=== PATIENT | male | born 1950 | race Caucasian/White ===

== ENCOUNTER 2017-06-17 08:42 | Outpatient (CLI) | payer MEDICARE, OTHER ==
[2017-06-17 13:29] LABS: BASOPHILS % (AUTO) 0.7 %; EOSINOPHILS # (AUTO) 0.1 10^3/uL (0.0-0.7); EOSINOPHILS % (AUTO) 2.5 %; HCT - HEMATOCRIT 42.5 % (42.0-52.0); HGB - HEMOGLOBIN 14.1 g/dL (14.0-18.0); LYMPHOCYTES % (AUTO) 21.1 %; MEAN CORPUSCULAR HEMOGLOBIN 30.5 pg (27.0-31.0); MEAN CORPUSCULAR HGB CONC 33.3 g/dL (32.0-36.0); MEAN CORPUSCULAR VOLUME 91.7 fL (80.0-94.0); MEAN PLATELET VOLUME 8.3 fL (7.4-11.4); MONOCYTES # (AUTO) 0.4 10^3/uL (0.0-1.0); MONOCYTES % (AUTO) 8.2 %; NEUTROPHILS # (AUTO) 3.3 10^3/uL (1.5-6.6); NEUTROPHILS % (AUTO) 67.5 %; RED BLOOD COUNT 4.63 10^6/uL (4.70-6.10); RED CELL DISTRIBUTION WIDTH 13.1 % (12.0-15.0); UNCORRECTED WHITE BLOOD COUNT 4.9 x10^3/uL; WHITE BLOOD COUNT 4.9 x10^3/uL (4.8-10.8)
[2017-06-17 13:37] LABS: ALBUMIN/GLOBULIN RATIO 1.4 (1.0-2.2); BILIRUBIN,TOTAL 0.7 mg/dL (0.2-1.0); CALCIUM 8.9 mg/dL (8.5-10.3); CREATININE 1.1 mg/dL (0.6-1.2); POTASSIUM 4.4 mmol/L (3.5-5.0); TOTAL PROTEIN 7.2 g/dL (6.7-8.2)
== END 2017-06-17 08:43 | disposition home or self-care (01) ==
LOC: LAB.R 08:42
PROVIDERS: ATTEND Nurse Practitioner Primary Care
DX: R73.01 Impaired fasting glucose (principal)
CPT/HCPCS: 80053; 85025

== ENCOUNTER 2021-04-04 05:11 | Outpatient (CLI) | payer MEDICARE, OTHER | END 2021-04-04 05:12 | disposition critical access hospital (66) | LOC: EMS 05:11 | DX: R55 Syncope and collapse (principal) | CPT/HCPCS: A0425; A0429 ==

== ENCOUNTER 2021-04-04 05:21 | Emergency (ER) | payer MEDICARE, OTHER ==
[2021-04-04 05:32] VITALS: BP 128/79
[2021-04-04 06:06] LABS: BASOPHILS % (AUTO) 0.3 %; EOSINOPHILS # (AUTO) 0.1 10^3/uL (0.0-0.7); EOSINOPHILS % (AUTO) 0.9 %; HCT - HEMATOCRIT 41.5 % (42.0-52.0); LYMPHOCYTES # (AUTO) 0.6 10^3/uL (1.5-3.5); LYMPHOCYTES % (AUTO) 5.7 %; MEAN CORPUSCULAR HGB CONC 33.7 g/dL (32.0-36.0); MEAN PLATELET VOLUME 9.4 fL (7.4-11.4); MONOCYTES # (AUTO) 0.5 10^3/uL (0.0-1.0); MONOCYTES % (AUTO) 5.5 %; NEUTROPHILS # (AUTO) 8.4 10^3/uL (1.5-6.6); NEUTROPHILS % (AUTO) 87.3 %; PLT - PLATELET COUNT 189 10^3/uL (130-450); RED BLOOD COUNT 4.51 10^6/uL (4.70-6.10); RED CELL DISTRIBUTION WIDTH 12.5 % (12.0-15.0); WHITE BLOOD COUNT 9.6 x10^3/uL (4.8-10.8)
[2021-04-04] MEDS ORDERED: BUFFERED LIDOCAINE 10 ML SYRINGE IU ONE (06:11)
--- NOTE | 2021-04-04 06:23 | ED Physician Documentation ---
History of Present Illness - Stated complaint Stated Complaint: SYNCOPE - Chief complaint Chief Complaint: Neuro - History obtained from History obtained from: Patient, Family - Additonal information Additional information: Patient comes emergency department chief complaint of syncopal episode and head injury that occurred at about 4:00 this morning. Patient states he had been in bed asleep and got up to go to the bathroom. When he got to the bathroom he realized he was feeling lightheaded and sat down on the toilet to try to let it pass. However, the patient ended up having a syncopal episode, falling off the toilet, and striking his head he thinks on the shower cubicle that is next to the toilet. Patient sustained a laceration to the top of his scalp and according to , who heard the patient fall, was unconscious for "a minute or 2" following the episode. states that when she could not wake the patient up, she called EMS. By the time they got there, the patient was awake. Patient states he just feels tired now but denies any other complaints. He did not have any shortness of breath, chest pain, or nausea prior to the incident. He states he felt a little nauseated when he woke up and vomited once. No current nausea, however. Patient states he is otherwise healthy and has not had any new medications or dose changes of existing medications. He states he has had multiple syncopal episodes throughout his life precipitated by various circumstances. He states he has been worked up for his syncope before and work- up has been negative. Patient denies any focal neurologic deficits after hitting his head. No visual changes. No pain, including in spine. Patient did not try to ambulate after the incident. No other complaints at this time. Review of Systems Ten Systems: 10 systems reviewed and negative Constitutional: reports: Reviewed and negative Eyes: reports: Reviewed and negative Ears: reports: Reviewed and negative Nose: reports: Reviewed and negative Throat: reports: Reviewed and negative Cardiac: reports: Reviewed and negative Respiratory: reports: Reviewed and negative GI: reports: Reviewed and negative : reports: Reviewed and negative Skin: reports: Reviewed and negative Musculoskeletal: reports: Reviewed and negative Neurologic: reports: Syncope, Head injury, LOC Psychiatric: reports: Reviewed and negative Endocrine: reports: Reviewed and negative Immunocompromised: reports: Reviewed and negative PD PAST MEDICAL HISTORY - Past Medical History Past Medical History: No Cardiovascular: None Respiratory: None Endocrine/Autoimmune: None GI: None : None HEENT: None Psych: None Musculoskeletal: None Derm: None - Past Surgical History Past Surgical History: Yes - Present Medications Home Medications: Ambulatory Orders Medication Instructions Recorded Confirmed No Known Home Medications 04/04/21 04/04/21 - Allergies Allergies/Adverse Reactions: Allergies Allergy/AdvReac Type Severity Reaction Status Date / Time No Known Drug Allergies Allergy Verified 04/04/21 05:32 - Social History Does the pt smoke?: No Smoking Status: Never smoker Does the pt drink ETOH?: Yes Does the pt have substance abuse?: No - Immunizations Immunizations are current?: No PD ED PE NORMAL - Vitals Vital signs reviewed: Yes - General General: Alert and oriented X 3, No acute distress, Well developed/nourished - HEENT HEENT: PERRL, EOMI, Moist mucous membranes, Other (4 cm laceration to apex of scalp. Bleeding controlled. Mild edema with abrasion over bridge of nose. No deformity or tenderness. 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 No: T wave inversion Compare to prior EKG: Old EKG unavailable Computer interpretation: Agree with computer - Labs Labs: Laboratory Tests 04/04/21 04/04/21 04/04/21 05:57 05:57 05:57 WBC 9.6 RBC 4.51 L Hgb 14.0 Hct 41.5 L MCV 92.0 MCH 31.0 MCHC 33.7 RDW 12.5 Plt Count 189 MPV 9.4 Neut # (Auto) 8.4 H Lymph # (Auto) 0.6 L Cecil # (Auto) 0.5 Eos # (Auto) 0.1 Baso # (Auto) 0.0 Absolute Nucleated RBC 0.00 Nucleated RBC % 0.0 Sodium 138 Potassium 3.9 Chloride 101 Carbon Dioxide 27 Anion Gap 10.0 BUN 26 H Creatinine 1.1 Estimated GFR (MDRD) 66 L Glucose 155 H Calcium 8.6 Total Bilirubin 0.7 AST 19 ALT 15 Alkaline Phosphatase 65 Troponin I High Sens 3.2 Total Protein 6.7 Albumin 4.0 Globulin 2.7 Albumin/Globulin Ratio 1.5 Lipase 27 - Rads (name of study) CT head Radiology: Final report received, EMP read indepedently, See rad report (nad) Procedures - Laceration (location) scalp Length in cm: 4 Wound type: Linear, Into subcut fat, Clean. No: Exposure of bone Neurovascular status: Sensory intact, Vascular intact Anesthesia: Lidocaine 1% Wound preparation: Hibiclens, Irrigated copiously NS, Wound explored, To the base. No: FB identified Skin layer closure: Delilah, Sutures - enter # (7 delilah), Other Other: Patient tolerated well, No complications, Neurovascular intact, Dressing applied PD MEDICAL DECISION MAKING - ED course Complexity details: reviewed results, re-evaluated patient, considered differential, d/w patient, d/w family ED course: The patient was worked up with labs, EKG, and CT scan of the head, all of which were unremarkable. His scalp wound was repaired with delilah, as above. I felt the patient was stable for discharge home. He is advised regarding wound care and resting getting plenty of fluids today. We have discussed follow-up and the usual indications for return. Departure - Departure Disposition: 01 Home, Self Care Clinical Impression: Episode of syncope Qualifiers: Syncope type: vasovagal syncope Qualified Code(s): R55 - Syncope and collapse Closed head injury Qualifiers: Encounter type: initial encounter Qualified Code(s): S09.90XA - Unspecified injury of head, initial encounter Scalp laceration Qualifiers: Encounter type: initial encounter Qualified Code(s): S01.01XA - Laceration without foreign body of scalp, initial encounter Condition: Stable Instructions: ED Head Injury Closed, ED Laceration Scalp Stitch Or Stap, ED Syncope Vasovagal Comments: Please get rest today and drink plenty of fluids. Your labs, EKG, and head CT all look good. You will need to have the delilah in place for 10 days, at which time you should have your wound rechecked and delilah removed. You may have the delilah removed at urgent care, walking, or your primary care physician's office. If you are unable to be seen at any of these venues, you may return to the emergency department. Please have your wound check sooner if you develop redness or swelling spreading away from the wound, or if the wound splits open and is draining. You may let water and soap run over the wound but please do n ot rub, scrub, or immerse the wound until delilah are out. This is in order to prevent infection.
[2021-04-04 06:28] LABS: ALBUMIN/GLOBULIN RATIO 1.5 (1.0-2.2); BILIRUBIN,TOTAL 0.7 mg/dL (0.2-1.0); CALCIUM 8.6 mg/dL (8.5-10.3); CREATININE 1.1 mg/dL (0.6-1.2); POTASSIUM 3.9 mmol/L (3.5-5.0); TOTAL PROTEIN 6.7 g/dL (6.7-8.2)
--- NOTE | 2021-04-04 07:32 | CT Report ---
PROCEDURE: HEAD WO INDICATIONS: syncopal episode with head injury TECHNIQUE: Noncontrast 4.5 mm thick angled axial sections acquired from the foramen magnum to the vertex. For r adiation dose reduction, the following was used: automated exposure control, adjustment of mA and/or kV according to patient size. COMPARISON: None. FINDINGS: Image quality: Excellent. CSF spaces: Basal cisterns are patent. No extra-axial fluid collections. Ventricles are normal in size and shape. Brain: No midline shift. No intracranial masses or hemorrhage. Stringer-white matter interface is norm al. Skull and face: Calvarium and visualized facial bones are intact, without suspicious lesions. Sinuses: Visualized sinuses and mastoids are clear. IMPRESSION: No acute intracranial abnormality. No significant discrepancy with the preliminary interpretation. Reviewed by: Magaly Pedro MD on 04/04/2021 7:31 AM PDT Approved by: Magaly Pedro MD on 04/04/2021 7:31 AM PDT Station ID: [id number]
== END 2021-04-04 07:17 | disposition home or self-care (01) ==
LOC: EDUNIT# → ED 05:21
DX: S01.91XA Laceration without foreign body of unspecified part of head, initial encounter (principal); W18.12XA Fall from or off toilet with subsequent striking against object, initial encounter
CPT/HCPCS: 12002; 36415; 80053; 83690; 84484; 85025; 93005; 99284

== ENCOUNTER 2021-04-16 09:22 | Emergency (ER) | payer MEDICARE, OTHER ==
[2021-04-16 09:59] VITALS: BP 121/62
--- NOTE | 2021-04-16 10:13 | ED Physician Documentation ---
History of Present Illness - Stated complaint Stated Complaint: STAPLE REMOVAL - Chief complaint Chief Complaint: General - History obtained from History obtained from: Patient - Additonal information Additional information: 71-year-old man presents for staple removal. No other complaints at this time. Review of Systems Skin: reports: Laceration (s) PD PAST MEDICAL HISTORY - Past Medical History Cardiovascular: None Respiratory: None Endocrine/Autoimmune: None GI: None : None HEENT: None Psych: None Musculoskeletal: None Derm: None - Past Surgical History Past Surgical History: Yes - Present Medications Home Medications: Ambulatory Orders Medication Instructions Recorded Confirmed No Known Home Medications 04/04/21 04/04/21 - Allergies Allergies/Adverse Reactions: Allergies Allergy/AdvReac Type Severity Reaction Status Date / Time No Known Drug Allergies Allergy Verified 04/16/21 09:36 - Social History Does the pt smoke?: No Smoking Status: Never smoker Does the pt drink ETOH?: Yes Does the pt have substance abuse?: No - Immunizations Immunizations are current?: No PD ED PE NORMAL - Vitals Vital signs reviewed: Yes - General General: Alert and oriented X 3, No acute distress, Well developed/nourished - HEENT HEENT: Other (Laceration to scalp well-healed. delilah removed) - Neuro Neuro: Alert and oriented X 3 - Psych Psych: Normal mood, Normal affect Results - Vitals Vitals: Vital Signs - 24 hr 04/16/21 04/16/21 09:34 09:59 Temperature 36.0 C L Heart Rate 56 L 58 L Respiratory 14 16 Rate Blood Pressure 129/62 121/62 O2 Saturation 100 100 Oxygen O2 Source Room air Procedures - General procedure General procedure: Staple removal performed (7 delilah) without complication. Healing well. EBL 0 PD MEDICAL DECISION MAKING - ED course ED course: 71-year-old man presented for staple removal. Removed without complication. No signs of infection. Patient will follow up with his primary doctor Impression 1 encounter for staple removal Departure - Departure Disposition: 01 Home, Self Care Condition: Good Instructions: ED Stap Removal No Complication Comments: You were seen in the emergency department for staple removal. Please return if you have any other concerns. Follow-up with your primary doctor.
[2021-04-16] MEDS ORDERED: BACITRACIN ZINC OINT 1 PACKET TOP STA (10:18)
[2021-04-16] MEDS ORDERED: BACITRACIN ZINC OINT 1 PACKET TOP ONE (10:18)
== END 2021-04-16 10:29 | disposition home or self-care (01) ==
LOC: ED 09:22
DX: S01.01XD Laceration without foreign body of scalp, subsequent encounter (principal); X58.XXXD Exposure to other specified factors, subsequent encounter
CPT/HCPCS: 99281; 99282; A9270

== ENCOUNTER 2024-03-22 06:45 | Outpatient (CLI) | payer MEDICARE, OTHER | END 2024-03-22 23:59 | disposition critical access hospital (66) | LOC: EMS 06:45 | DX: R42 Dizziness and giddiness (principal); R11.0 Nausea; H53.9 Unspecified visual disturbance | CPT/HCPCS: A0425; A0427 ==

== ENCOUNTER 2024-03-22 06:57 | Emergency (ER) | payer MEDICARE, OTHER ==
[2024-03-22 07:28] LABS: BASOPHILS % (AUTO) 0.9 %; EOSINOPHILS # (AUTO) 0.1 10^3/uL (0.0-0.7); EOSINOPHILS % (AUTO) 2.2 %; HCT - HEMATOCRIT 39.8 % (42.0-52.0); HGB - HEMOGLOBIN 13.1 g/dL (14.0-18.0); LYMPHOCYTES # (AUTO) 0.8 10^3/uL (1.5-3.5); LYMPHOCYTES % (AUTO) 17.3 %; MEAN CORPUSCULAR HEMOGLOBIN 30.8 pg (27.0-31.0); MEAN CORPUSCULAR HGB CONC 32.9 g/dL (32.0-36.0); MEAN CORPUSCULAR VOLUME 93.4 fL (80.0-94.0); MEAN PLATELET VOLUME 9.2 fL (7.4-11.4); MONOCYTES # (AUTO) 0.3 10^3/uL (0.0-1.0); MONOCYTES % (AUTO) 6.7 %; NEUTROPHILS # (AUTO) 3.4 10^3/uL (1.5-6.6); NEUTROPHILS % (AUTO) 72.7 %; PLT - PLATELET COUNT 196 10^3/uL (130-450); RED BLOOD COUNT 4.26 10^6/uL (4.70-6.10); RED CELL DISTRIBUTION WIDTH 12.6 % (12.0-15.0); WHITE BLOOD COUNT 4.6 x10^3/uL (4.8-10.8)
[2024-03-22] MEDS: DROPERIDOL 5 MG/2 ML VIAL IVP STA (07:34)
[2024-03-22] MEDS: MECLIZINE 12.5 MG TABLET PO STA (07:34)
[2024-03-22] MEDS: SODIUM CHLORIDE 0.9% 1,000 ML IV STA (07:39)
[2024-03-22 07:40] LABS: ALBUMIN 3.9 g/dL (3.2-5.5); ALBUMIN/GLOBULIN RATIO 1.6 (1.0-2.2); BILIRUBIN,TOTAL 0.5 mg/dL (0.2-1.0); CALCIUM 8.9 mg/dL (8.5-10.3); CREATININE 0.9 mg/dL (0.6-1.3); POTASSIUM 4.1 mmol/L (3.5-4.5); TOTAL PROTEIN 6.3 g/dL (6.4-8.9)
--- NOTE | 2024-03-22 09:01 | CT Report ---
PROCEDURE: Head WO INDICATIONS: vertigo TECHNIQUE: Noncontrast 4.5 mm thick angled axial sections acquired from the foramen magnum to the vertex. For r adiation dose reduction, the following was used: automated exposure control, adjustment of mA and/or kV according to patient size. COMPARISON: 04/04/2021. FINDINGS: Image quality: Excellent. CSF spaces: Basal cisterns are patent. No extra-axial fluid collections. Ventricles are normal in size and shape. Brain: No midline shift. No intracranial masses or hemorrhage. Stringer-white matter interface is norm al. Skull and face: Calvarium and visualized facial bones are intact, without suspicious lesions. Sinuses: Visualized sinuses and mastoids are clear. IMPRESSION: No acute intracranial pathology. Reviewed by: Finn Moreno MD on 03/22/2024 9:00 AM PDT Approved by: Finn Moreno MD on 03/22/2024 9:00 AM PDT Station ID: [id number]
[2024-03-22] MEDS: DEXAMETHASONE 10 MG/ML VIAL IV STA (11:59)
[2024-03-22] MEDS: diazePAM INJ 5 MG/ML SYRINGE IVP STA (11:59)
--- NOTE | 2024-03-22 13:31 | ED Physician Documentation ---
History of Present Illness - Stated complaint Stated Complaint: VERTIGO - Chief complaint Chief Complaint: Neuro - History obtained from History obtained from: Patient - Additonal information Additional information: The pt comes to the ED with CC of dizziness that started this morning. He has also had nausea and vomiting. He states it's a feeling of spinning, and is worse when he sits or stands. No focal weakness. He states that when he is laying down and not moving, he doesn't feel too bad. He denies focal weakness, and states he does not feel uncoordinated primarily--it's more that when he gets up, his head feels like it's spinning, and he can't get his bearings. He felt fine when he went to bed last night. No tinnitis or headache. No h/o this previously, though the pt does have a h/o fainting episodes. He states this does not feel like lightheadedness, though. No CP or SOB. No other complaints at this time. PD PAST MEDICAL HISTORY - Past Medical History Cardiovascular: None Respiratory: None Endocrine/Autoimmune: None GI: None : None HEENT: None Psych: None Musculoskeletal: None Derm: None - Past Surgical History Past Surgical History: Yes - Present Medications Home Medications: Ambulatory Orders Medication Instructions Recorded Confirmed Meclizine HCl [Antivert] 50 mg PO Q6H PRN #20 tablet 03/22/24 Ondansetron Odt [Zofran] 4 mg TL Q6H PRN #14 tablet 03/22/24 - Allergies Allergies/Adverse Reactions: Allergies Allergy/AdvReac Type Severity Reaction Status Date / Time No Known Drug Allergies Allergy Verified 03/22/24 07:04 - Social History Does the pt smoke?: No Smoking Status: Never smoker Does the pt drink ETOH?: Yes Does the pt have substance abuse?: No - Immunizations Immunizations are current?: No PD ED PE NORMAL - Vitals Vital signs reviewed: Yes - General General: Alert and oriented X 3, No acute distress, Well developed/nourished, Other (appears somewhat generally uncomfortable, but no distress.) - HEENT HEENT: Atraumatic, PERRL (no nystagmus while lying in bed), EOMI, Moist mucous membranes - Neck Neck: Supple, no meningeal sign - Cardiac Cardiac: RRR, No murmur - Respiratory Respiratory: No respiratory distress, Clear bilaterally - Abdomen Abdomen: Soft, Non tender, Non distended - Derm Derm: Normal color, Warm and dry, No rash - Extremities Extremities: No deformity, No edema - 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 Able to sit up and hold self in an upright position, though he does report this makes him feel like he is spinning.) - Psych Psych: Normal mood, Normal affect Results - Vitals Vitals: Oxygen O2 Source Room air - Labs Labs: Laboratory Tests 03/22/24 03/22/24 07:22 07:22 WBC 4.6 L RBC 4.26 L Hgb 13.1 L Hct 39.8 L MCV 93.4 MCH 30.8 MCHC 32.9 RDW 12.6 Plt Count 196 MPV 9.2 Neut # (Auto) 3.4 Lymph # (Auto) 0.8 L Mobile # (Auto) 0.3 Eos # (Auto) 0.1 Baso # (Auto) 0.0 Absolute Nucleated RBC 0.00 Nucleated RBC % 0.0 Sodium 138 Potassium 4.1 Chloride 107 Carbon Dioxide 26 Anion Gap 5.0 L BUN 18 Creatinine 0.9 Estimated GFR (MDRD) 83 L Glucose 165 H Calcium 8.9 Total Bilirubin 0.5 AST 16 ALT 13 Alkaline Phosphatase 67 Total Protein 6.3 L Albumin 3.9 Globulin 2.4 Albumin/Globulin Ratio 1.6 Lipase 14 PD Medical Decision Making - ED course Complexity details: reviewed results, re-evaluated patient, considered differential, d/w patient ED course: The pt was initially treated with IV fluids, Droperidol, and meclizine. He was worked up with labs and CT, which were unremarkable. He was found to be in nor mal sinus rhythm on the monitor. The pt was feeling a little better after the medications and fluids, but was still complaining of significant vertigo. He was given doses of Decadron and Valium. He was able to sit up, though he reported feeling "woozy". The pt was observed in the ED for over 6 hours in total, with partial improvement in sx. He did not display any focal neurologic deficits, including any truncal or limb ataxia. I d/w pt and that the sx may persist for some days or weeks. While ideally we can resolve the sx in the ED, it is not always possible. However, I do not find evidence of an emergent condition. We have discussed that the pt should stay down until his vertigo is better and he can get around safely. I have prescribed meclizine and Zofran. The pt transferred to the wheelchair without difficulty and was able to sit up stably in the chair. He appeared clinically improved. He is stable for d/c home. We have discussed the need for follow-up and the usual indications for return. Departure - Departure Disposition: Home, Self Care Clinical Impression: Vertigo Condition: Stable Instructions: ED BPV Vertigo Prescriptions: Meclizine HCl [Antivert] 50 mg PO Q6H PRN #20 tablet PRN Reason: Vertigo Ondansetron Odt [Zofran] 4 mg TL Q6H PRN #14 tablet PRN Reason: Nausea / Vomiting Comments: Your laboratory studies, monitor reading, and CT scan all look goodthere is no evidence of a stroke or any other more serious condition, either on examination or on your tests. Your symptoms are most consistent with benign positional vertigo. There are variety of potential causes for this, generally self-limited and not serious though uncomfortable. We have given you a number of medications that help with vertigo, unfortunately without complete relief. Most likely, you simply need more time to let this condition run its course. I have sent prescriptions for medications to help with the vertigo and nausea To the [facility] here in [place]. Forms: PCP List Discharge Date/Time: 03/22/24 13:56
[2024-03-22 13:51] VITALS: BP 138/69; O2SAT 99
== END 2024-03-22 13:56 | disposition home or self-care (01) ==
LOC: EDUNIT# → ED 06:57
DX: R42 Dizziness and giddiness (principal)
CPT/HCPCS: 36415; 70450; 80053; 83690; 85025; 93005; 96361; 96374; 96375; 99284; A9270